=== PATIENT | female | born 1975 | race Caucasian/White ===

== ENCOUNTER 2016-08-30 07:44 | Day surgery (SDC) ==
[2016-08-29 09:00] LABS: HEMATOCRIT 48.3 % (37.0-47.0); HEMOGLOBIN 15.6 g/dL (12.0-16.0); MCH 29.6 PG (27-31); MCHC 32.3 g/dL (33-37); MCV 91.7 FL (81-99); MPV 10.5 FL (7.4-10.4); RBC 5.27 XMIL (4.2-5.4)
[2016-08-29 09:26] LABS: AGAP 12; ALBUMIN 3.9 g/dL (3.5-5.0); ALKALINE PHOSPHATASE 71 U/L (32-104); BUN 10 mg/dL (8-22); CALCIUM 9.4 mg/dL (8.8-10.2); CHLORIDE 103 mmol/L (98-107); COSMO 283; GOT 29 U/L (10-30); GPT 107 U/L (10-36); POTASSIUM 4.3 mmol/L (3.5-5.1); SODIUM 142 mmol/L (136-145); TCO2 27 mmol/L (25-35); TOTAL BILIRUBIN 0.62 mg/dL (0.20-1.00); TOTAL PROTEIN 6.5 g/dL (6.3-8.3)
[2016-08-30] MEDS ORDERED: REGLAN ONE (07:53)
[2016-08-30] MEDS ORDERED: PEPCID ONE (07:53)
[2016-08-30] MEDS ORDERED: LR 1,000 ML ONE ×3 (07:53→14:59)
[2016-08-30] MEDS ORDERED: MEFOXIN 2 GM/NS 50 ML ONE (07:54)
[2016-08-30] MEDS ORDERED: ROBINUL ONE ×2 (07:54→14:59)
[2016-08-30] MEDS ORDERED: VALIUM ONE (08:12)
[2016-08-30] MEDS ORDERED: XYLOCAINE 1% ONE (10:54)
[2016-08-30] MEDS ORDERED: MARCAINE 0.25% PF/EPI 1:200,000 ONE (10:54)
[2016-08-30] MEDS ORDERED: SODIUM CHLORIDE 0.9% ONE (10:54)
[2016-08-30] MEDS ORDERED: GLUCAGON ONE (10:54)
[2016-08-30] MEDS: DILAUDID ONE ×2 (13:04→13:14)
--- NOTE | 2016-08-30 13:04 | OPERATIVE NOTE ---
PROCEDURE DATE : 08/30/2016 PREOPERATIVE DIAGNOSES: 1. Cholecystitis. 2. Possible common bile duct stone. POSTOPERATIVE DIAGNOSES: 1. Cholecystitis. 2. Possible common bile duct stone. PROCEDURE: Laparoscopic cholecystectomy with cholangiogram. SURGEON: Kwasi Brady MD [employer]: None. ANESTHESIA: General endotracheal. INTRAOPERATIVE FINDINGS: On cholangiogram, appeared to be cystic duct valve that made visualization of the common bile duct impossible during the cholangiogram. There was also a 4.5 cm stone and a smaller stone noted in the gallbladder. COMPLICATIONS: None at time of dictation. ESTIMATED BLOOD LOSS: 10 mL. SPECIMENS REMOVED: Gallbladder and its contents. BRIEF HISTORY: The patient is a 41-year-old female presenting with right upper quadrant pain, cholecystitis and cholelithiasis and we discussed taking her gallbladder out. The risks, benefits, and alternatives of were discussed. She reports understanding and wished to proceed with the procedure. There was some concern on the CT scan that she might have a dilated common bile duct, but her laboratories were normal. DESCRIPTION OF PROCEDURE: After informed consent was obtained, the patient was brought to the operative theatre, transferred to the operative table and placed in the supine position. General endotracheal anesthesia was then performed without complication. A formal time-out was then performed confirming patient, date, and procedure. All were in agreement. At that time, attention was given to the abdomen. An infra-umbilical incision was made through which using the Opti-Vu technique, we were able to insert an 11-mm trocar and connected to insufflation. Pneumoperitoneum was achieved. Under direct visualization, placed 3 more trocars, all 5 mm; one in the subxiphoid, 2 in the right upper quadrant. Using these, the gallbladder was identified and retracted cephalad with some difficulty given her body habitus. We were able to identify the cystic duct and cystic artery, doubly clipped and ligated the cystic artery, placed a clip on the cystic duct, made a ductotomy, inserted a cholangiogram catheter, shot multiple attempts at a cholangiogram. The cystic duct itself was occluded with likely a valve. We were unable to see the full hepatic tree, but given her normal laboratories, we elected to abort this part. We then doubly clipped and ligated the cystic duct, dissected the gallbladder off the gallbladder fossa. The patient's body habitus made it difficult to remove easily, but we were able to place it into an Endobag. We brought it out through the infra-umbilical incision which had to be considerably enlarged to accommodate the 4.5 cm stone. We had done this we irrigated out the abdomen copiously, closed the infra-umbilical incision with multiple passed of 0 Vicryl. The patient did have tenuous fascia in this area, but we did get the best approximation possible. We closed all skin incisions with a 4-0 Monocryl. The patient tolerated the procedure well, had sterile dressings applied.
[2016-08-30] MEDS ORDERED: NORCO-10 ONE (13:32)
[2016-08-30] MEDS ORDERED: DIPRIVAN 1% ONE (13:32)
[2016-08-30] MEDS ORDERED: FENTANYL ONE (13:32)
[2016-08-30 14:28] VITALS: BP 119/59
[2016-08-30] MEDS ORDERED: NEOSTIGMINE ONE (14:58)
[2016-08-30] MEDS ORDERED: ZOFRAN ONE (14:58)
[2016-08-30] MEDS ORDERED: QUELICIN (DOSE) ONE (14:59)
[2016-08-30] MEDS ORDERED: DECADRON ONE (14:59)
[2016-08-30] MEDS ORDERED: NORCURON ONE (14:59)
[2016-08-30] MEDS ORDERED: XYLOCAINE-MPF 2% ONE (14:59)
== END 2016-08-30 14:29 | disposition home or self-care (01) ==
LOC: OPS 07:44
PROVIDERS: ATTEND Surgery
DX: K80.10 Calculus of gallbladder with chronic cholecystitis without obstruction (principal); F17.210 Nicotine dependence, cigarettes, uncomplicated
CPT/HCPCS: 76000; 80053; 85027; 88304; C1751; J0330; J0694; J1100; J1170; J1610; J2405; J3010; J7120; Q9966; J2710